=== PATIENT | male | born 1950 | race Caucasian/White ===

== ENCOUNTER → 2021-12-29 09:01 | Outpatient (BNVA) | payer MEDICARE, SELFPAY | PROVIDERS: Family Provider Internal Medicine; PCP Internal Medicine; Visit Provider Internal Medicine | DX: E11.9 Type 2 diabetes mellitus without complications (principal); Z95.0 Presence of cardiac pacemaker; I10 Essential (primary) hypertension; N52.1 Erectile dysfunction due to diseases classified elsewhere; E78.5 Hyperlipidemia, unspecified; F17.210 Nicotine dependence, cigarettes, uncomplicated | CPT/HCPCS: 99214 ==

== ENCOUNTER → 2022-05-21 11:12 | Outpatient (BNVA) | payer MEDICARE, SELFPAY | PROVIDERS: Family Provider Internal Medicine; PCP Internal Medicine; Visit Provider Internal Medicine Cardiovascular Disease | DX: I10 Essential (primary) hypertension (principal); Z95.0 Presence of cardiac pacemaker; E11.9 Type 2 diabetes mellitus without complications; E78.5 Hyperlipidemia, unspecified; F17.210 Nicotine dependence, cigarettes, uncomplicated | CPT/HCPCS: 99213 ==

== ENCOUNTER → 2022-08-03 10:59 | Outpatient (BNVA) | payer MEDICARE, SELFPAY | PROVIDERS: Family Provider Internal Medicine; PCP Internal Medicine; Visit Provider Internal Medicine | DX: Z45.02 Encounter for adjustment and management of automatic implantable cardiac defibrillator (principal) | CPT/HCPCS: 93279 ==

== ENCOUNTER → 2022-12-28 09:05 | Outpatient (BNVA) | payer MEDICARE, SELFPAY | PROVIDERS: Family Provider Internal Medicine; PCP Internal Medicine; Visit Provider Internal Medicine Cardiovascular Disease | DX: I10 Essential (primary) hypertension (principal); Z95.0 Presence of cardiac pacemaker; E11.9 Type 2 diabetes mellitus without complications; Z79.84 Long term (current) use of oral hypoglycemic drugs; E78.5 Hyperlipidemia, unspecified; F17.210 Nicotine dependence, cigarettes, uncomplicated; Z79.82 Long term (current) use of aspirin | CPT/HCPCS: 99213 ==

== ENCOUNTER → 2023-06-28 09:05 | Outpatient (BNVA) | payer MEDICARE, SELFPAY | PROVIDERS: Family Provider Internal Medicine; PCP Internal Medicine; Visit Provider Internal Medicine Cardiovascular Disease | DX: Z95.0 Presence of cardiac pacemaker (principal); Z72.0 Tobacco use; I10 Essential (primary) hypertension; N52.1 Erectile dysfunction due to diseases classified elsewhere; E11.9 Type 2 diabetes mellitus without complications; E78.5 Hyperlipidemia, unspecified; Z79.84 Long term (current) use of oral hypoglycemic drugs | CPT/HCPCS: 99213 ==

== ENCOUNTER → 2024-03-18 10:47 | Outpatient (BNVA) | payer MEDICARE, SELFPAY | PROVIDERS: PCP Internal Medicine; Visit Provider Internal Medicine Cardiovascular Disease | DX: E78.5 Hyperlipidemia, unspecified (principal); Z72.0 Tobacco use; I10 Essential (primary) hypertension; Z95.0 Presence of cardiac pacemaker; E11.9 Type 2 diabetes mellitus without complications; N52.1 Erectile dysfunction due to diseases classified elsewhere; Z79.84 Long term (current) use of oral hypoglycemic drugs | CPT/HCPCS: 99213 ==

== ENCOUNTER 2024-07-15 16:42 | Emergency (ER) | payer MEDICARE, SELFPAY ==
[2024-07-15 16:54] VITALS: BP 135/77; PULSE 77; RESP 16; TEMP 36.4; O2SAT 97; BMI 28.5
[2024-07-15 17:40] VITALS: BP 102/75; PULSE 70; O2SAT 96
--- NOTE | 2024-07-15 17:54 | ED_ITS ---
HPI - Ear Problem General: Chief complaint: Ear Stated complaint: post op ear bleeding Time Seen by Provider: 07/15/24 17:01 Source: patient Mode of arrival: ambulatory Limitations: no limitations History of Present Illness: Patient is a 73-year-old male present to the emergency department with postop bleeding onset today. This morning, patient had debridement of left external auditory ear canal due to her persistent otitis externa, where he also had some cartilage removed. States that he has blood through multiple cotton balls since, and was told to go to the emergency department with any persistent bleeding. did contact ENT physician via email, who informed them to just keep swapping out the bandages. Patient not having any fever, pain, or other concerning symptoms at this time. Cotton ball is removed here in the emergency department and does not reveal any active bleeding. MD Complaint: other (Postop bleeding) Location: left ear Duration: other (Seems to have resolved) Context: other (Recent surgery) Associated symptoms: Reports no associated symptoms; Denies ear or mastoid pain, fever(s), headache(s) or neck pain Related Data Home Medications Medication Instructions Recorded Confirmed aspirin 81 mg tablet,delayed 81 mg PO DAILY 03/21/20 03/18/24 release (Aspir-) esomeprazole magnesium 40 mg 40 mg PO DAILY 03/21/20 03/18/24 capsule,delayed release (Nexium) ezetimibe 10 mg tablet 10 mg PO DAILY 03/21/20 03/18/24 glipizide 10 mg tablet 20 mg PO BID 03/21/20 03/18/24 pregabalin 50 mg capsule (Lyrica) 50 mg PO TID 03/21/20 03/18/24 metformin 500 mg tablet 1,000 mg PO BID 05/21/22 03/18/24 Previous Rx's Medication Instructions Recorded nitroglycerin 0.4 mg sublingual 0.4 mg sublingual Q5M PRN chest 05/21/22 tablet pain #50 tabs sildenafil 100 mg tablet 100 mg PO DAILY PRN sexual 06/28/23 activity #90 tabs Allergies Allergy/AdvReac Type Severity Reaction Status Date / Time Penicillins Allergy Unknown Unknown Verified 03/18/24 11:09 Review of Systems General: Reports: 10 or more systems reviewed and unremarkable except in HPI and below Const: Denies: fever(s), chills or fatigue Eyes: Denies: change in vision ENMT: Reports: other (Postop bleeding of left ear); Denies: throat pain, ear or mastoid pain or nasal discharge Card: Denies: chest pain, palpitations, swelling of feet/ankles or lightheadedness Resp: Denies: dyspnea, productive cough or wheezing GI: Denies: abdominal pain, nausea, vomiting, diarrhea or constipation : Denies: flank pain, difficulty urinating, dysuria or urinary frequency Musc: Denies: neck pain, back pain or joint pain Skin/Breast: Denies: rash Neuro: Denies: headache(s), numbness in extremities or weakness in extremities PFSH ED PFSH: Medical History HTN (hypertension) Dyslipidemia Tobacco abuse COPD (chronic obstructive pulmonary disease) Erectile disorder due to medical condition in male Diabetes Surgical History Status cardiac pacemaker Family History Brother CAD (coronary artery disease) Father , AGE 56 Cancer STOMACH Mother Alzheimer disease Social History Smoking and tobacco/nicotine status: current every day tobacco/nicotine user cigarettes Packs smoked per day: 1 Household members: spouse Marital status: Current occupational status: disabled Physical Exam Const: COMMON NORMALS: no acute distress and no limitations GENERAL APPEARANCE: cooperative, comfortable and well developed ORIENTATION/CONSCIOUSNESS: Yes awake HENMT: COMMON NORMALS: normocephalic, atraumatic and hearing grossly normal bilaterally HEAD & SCALP: normocephalic and atraumatic OTHER: Saturated cotton swab to left ear noted initially, this was removed and did not demonstrate active bleeding. Presence of dried blood, no identifiable source of active bleeding. Area is nontender to palpation. Hearing is intact. Eye: COMMON NORMALS: Equal, round and reactive pupils present, EOMs intact bilaterally and conjunctivae normal CONJUNCTIVA: Yes conjunctivae normal PUPIL: Yes Equal, round and reactive pupils present Neck/C-Spine: COMMON NORMALS: full ROM, supple and no JVD Resp: COMMON NORMALS: normal respiratory effort, No retractions, No use of accessory muscles and clear to auscultation bilaterally AUSCULTATION: clear to auscultation bilaterally Cardio: COMMON NORMALS: no JVD, regular rate, regular rhythm, No clicks present (Cardio), No murmurs present (Cardio) and No rub (Cardio) RATE: regular rate RHYTHM: regular rhythm GI: COMMON NORMALS: Normal to inspection, nondistended, normoactive bowel sounds present, Soft to palpation and non-tender AUSCULTATION: Yes normoactive bowel sounds PALPATION: Yes Soft to palpation RECTAL EXAM: Yes deferred Extremity: COMMON NORMALS: normal to inspection, full ROM and capillary refill normal Skin: COMMON NORMALS: no rashes or lesions noted GENERAL SKIN EXAM: no rashes or lesions noted Course Vital Signs: Vital signs: Vital Signs Temperature 97.6 F 07/15/24 16:54 Pulse Rate 70 07/15/24 17:40 Respiratory Rate 16 07/15/24 16:54 Blood Pressure 102/75 07/15/24 17:40 Pulse Oximetry 96 07/15/24 17:40 Oxygen Delivery Me thod Room Air 07/15/24 17:40 [facility] - Ear Medical Decision Making Patient presented approximately 6 hours postop after debridement of the left external auditory ear canal for persistent infection. Was concerned about the amount of swabs he was going through, did contact ENT who told him to discontinue swapping them out. They came to the emergency department however, and upon removal of this cotton swab there is no active bleeding noted. There is quite a bit of dried blood, and patient did not have any concerning historical factors or symptoms to report. Vitals were normal. Patient is not on any blood thinners. He will follow-up with ENT as already planned. He has been given thorough instructions of wound care already by ENT, and will continue to do so. Return precautions were given, case discussed with Dr. Ly. No radiology studies performed this visit Discharge Plan Discharge Patient Disposition: Home Clinical Impression: Post-op bleeding Condition: Stable Prescriptions: No Action metformin 500 mg tablet 1,000 mg PO BID nitroglycerin 0.4 mg tablet, sublingual 0.4 mg sublingual Q5M PRN (Reason: chest pain) Qty: 50 6RF Rx Instructions: do not exceed 3 doses per episode ezetimibe 10 mg tablet 10 mg PO DAILY pregabalin [Lyrica] 50 mg capsule 50 mg PO TID esomeprazole magnesium [Nexium] 40 mg capsule,delayed release(DR/EC) 40 mg PO DAILY glipizide 10 mg tablet 20 mg PO BID aspirin [Aspir-81] 81 mg tablet,delayed release (DR/EC) 81 mg PO DAILY sildenafil 100 mg tablet 100 mg PO DAILY PRN (Reason: sexual activity) Qty: 90 3RF Rx Instructions: administer 30 minutes to 4 hours before activity Discharge Orders: Discharge ED (Routine); Ordered 07/15/24 Ordered By: Johnny Barnes Referrals: Trey Baird MD [Primary Care Provider] - Discharge Diet: Usual diet Discharge Activity: Increase activity as tolerated Patient Instructions: Debridement (ED) Activity Restrictions/Additional Instructions: Please follow-up with Dr. Delgado as discussed. Continue wound care as instructed. Return with any high fevers, significant increase in pain, or other concerning symptoms you may have. Coding Level of Care Code ED [employer] Operator for Wesley Gillespie
[2024-07-15 18:07] VITALS: BP 103/64; PULSE 70; O2SAT 96
== END 2024-07-15 18:05 | disposition home or self-care (01) ==
PROVIDERS: Emergency Provider Physician Assistant; PCP Internal Medicine
DX: H95.41 Postprocedural hemorrhage of ear and mastoid process following a procedure on the ear and mastoid process (principal); Z79.82 Long term (current) use of aspirin; Z79.84 Long term (current) use of oral hypoglycemic drugs; F17.210 Nicotine dependence, cigarettes, uncomplicated; I10 Essential (primary) hypertension; E78.5 Hyperlipidemia, unspecified; J44.9 Chronic obstructive pulmonary disease, unspecified; E11.9 Type 2 diabetes mellitus without complications; Z95.0 Presence of cardiac pacemaker
CPT/HCPCS: 99282

== ENCOUNTER → 2024-12-04 09:47 | Outpatient (BNVA) | payer MEDICARE, SELFPAY | PROVIDERS: PCP Internal Medicine; Visit Provider Internal Medicine Cardiovascular Disease | DX: I10 Essential (primary) hypertension (principal); Z95.0 Presence of cardiac pacemaker; E78.5 Hyperlipidemia, unspecified; F17.210 Nicotine dependence, cigarettes, uncomplicated; E11.65 Type 2 diabetes mellitus with hyperglycemia; Z79.4 Long term (current) use of insulin | CPT/HCPCS: 99214 ==